=== PATIENT | female | born 1980 | race Caucasian/White ===

== ENCOUNTER 2020-12-12 10:31 | Emergency (ER) | payer BC ==
[~2020-12-12] VITALS: Ht 165.1 cm; Wt 85.0 kg
[2020-12-12 11:02] VITALS: BP 165/78
[2020-12-12 11:10] LABS: HEMATOCRIT 38.4 % (37.0-47.0); HEMOGLOBIN 12.7 g/dl (12.0-16.0); IMMATURE GRANULOCYTES 0.2 % (0.0-5.0); MEAN CELL VOLUME 97.5 fL CALC (80.0-100.0); MEAN CORPUSCULAR HGB 32.2 pG CALC (26.0-32.0); MEAN CORPUSCULAR HGB CONC 33.1 g/dL CAL (32.0-36.0); NEUT# 7.16 thou/uL (2.00-7.15); RED BLOOD COUNT 3.94 mill/uL (4.20-5.60); RED CELL DISTRI WIDTH 12.3 % (11.5-15.5)
[2020-12-12 11:25] LABS: ALBUMIN 4.4 g/dL (3.2-5.0); ALKALINE PHOSPHATASE 34 u/l (38-126); ANION GAP 13 (6-22 (CALC)); BILIRUBIN, TOTAL 0.6 mg/dL (0.0-1.4); BUN 9 mg/dL (7-17); BUN/CREATININE RATIO 18 (12-20 (CALC)); CARBON DIOXIDE 21 mmol/l (22-30); CHLORIDE 103 mmol/l (95-108); CREATININE 0.5 mg/dL (0.5-1.0); GFR > 60 ML/MIN (>=60 (CALC)); GFR FOR AFR.AMER. > 60 ML/MIN (>=60 (CALC)); POTASSIUM 4.4 mmol/l (3.5-5.1); SGOT/AST 32 u/l (14-36); SODIUM 133 mmol/l (137-146); TOTAL PROTEIN 7.6 g/dL (6.3-8.2)
[2020-12-12 11:53] LABS: BETA-HCG, QUANT(RESULT NUMBER) 1168 mIU/mL
== END 2020-12-12 13:15 | disposition home or self-care (01) | DRG 779 ==
LOC: ED 10:31
PROVIDERS: Emergency Medicine
DX: O03.9 Complete or unspecified spontaneous abortion without complication (principal); Z67.10 Type A blood, Rh positive

== ENCOUNTER 2021-01-17 07:47 | Emergency (ER) | payer BC ==
[~2021-01-17] VITALS: Ht 165.1 cm; Wt 85.9 kg
[2021-01-17 08:45] LABS: HEMATOCRIT 37.2 % (37.0-47.0); IMMATURE GRANULOCYTES 0.6 % (0.0-5.0); MEAN CORPUSCULAR HGB 32.3 pG CALC (26.0-32.0); MEAN CORPUSCULAR HGB CONC 32.3 g/dL CAL (32.0-36.0); NEUT# 5.53 thou/uL (2.00-7.15); RED BLOOD COUNT 3.72 mill/uL (4.20-5.60); RED CELL DISTRI WIDTH 13.1 % (11.5-15.5)
[2021-01-17 09:01] LABS: ANION GAP 13 (6-22 (CALC)); BUN 15 mg/dL (7-17); BUN/CREATININE RATIO 23 (12-20 (CALC)); CARBON DIOXIDE 25 mmol/l (22-30); CHLORIDE 102 mmol/l (95-108); CREATININE 0.7 mg/dL (0.5-1.0); GFR > 60 ML/MIN (>=60 (CALC)); GFR FOR AFR.AMER. > 60 ML/MIN (>=60 (CALC)); SODIUM 136 mmol/l (137-146)
[2021-01-17 10:24] VITALS: BP 124/77
== END 2021-01-17 10:23 | disposition left against medical advice (07) | DRG 779 ==
LOC: ED 07:47
PROVIDERS: Family Medicine
DX: O03.4 Incomplete spontaneous abortion without complication (principal); Z91.19 Patient's noncompliance with other medical treatment and regimen

== ENCOUNTER 2021-06-16 05:58 | Emergency (ER) | payer SELFPAY ==
[~2021-06-16] VITALS: Ht 165.1 cm; Wt 86.0 kg
[2021-06-16 06:04] VITALS: BP 107/54
[2021-06-16 06:31] VITALS: BP 71/42
[2021-06-16 06:33] VITALS: BP 81/42
[2021-06-16 06:54] VITALS: BP 109/58
[2021-06-16] MEDS ORDERED: AMOXICILLIN500 MG PO (06:57)
[2021-06-16 06:58] VITALS: BP 109/58
== END 2021-06-16 07:11 | disposition home or self-care (01) | DRG 605 ==
LOC: ED 05:58
PROC: 0HQFXZZ Repair Right Hand Skin, External Approach (ICD-10-PCS; principal; 2021-06-16)
DX: S61.411A Laceration without foreign body of right hand, initial encounter (principal); W26.8XXA Contact with other sharp object(s), not elsewhere classified, initial encounter

== ENCOUNTER 2021-06-18 08:09 | Emergency (ER) | payer SELFPAY ==
[~2021-06-18 08:09] MED LIST: AMOXICILLIN500 MG PO
== END 2021-06-18 08:11 | disposition left against medical advice (07) | DRG 951 ==
LOC: ED 08:09 → LWOBS 08:10
DX: Z53.21 Procedure and treatment not carried out due to patient leaving prior to being seen by health care provider (principal)